=== PATIENT | female | born 1940 | race Caucasian/White ===

== ENCOUNTER 2016-08-14 01:46 | Inpatient (IN) ==
[2016-08-14 04:51] LABS: Hematocrit 34.1 % (35.3-44.9); Hemoglobin 11.3 g/dL (11.5-15.4); Immature Granulocytes % 0.2 % (0-4); Lymphocytes % 3.6 %; Mean Corpuscular HGB Conc 33.1 g/dL (31.6-35.5); Mean Corpuscular Volume 87.7 fL (83.0-100.0); Mean Platelet Volume 11.2 fL (9.4-12.4); Monocytes % 1.5 %; Platelet Count 203 K/mcL (140-400); Red Blood Count 3.89 M/mcL (3.82-4.97); Red Cell Distribution Width 13.5 % (11.5-14.5); Segmented Neutrophils % 94.6 %
[2016-08-14 04:52] LABS: Basophils % 0.1 %; Lymphocytes # 0.4 K/mcL (0.6-4.6); Monocytes # 0.2 K/mcL (0.0-1.3); Neutrophils # 9.3 K/mcL (1.6-8.9)
[2016-08-14 04:58] LABS: ABG Base Excess 3.2 mEq/L (-2.0 to 3.0); ABG HCO3 29.8 mEQ/L (21-27); ABG Oxygen Saturation 93 % (95-98); ABG PCO2 54 mmHg (35-45); ABG PH 7.35 pH Units (7.32-7.45); ABG PO2 71 mmHg (85-104); ABG TCO2 31.5 mEq/L (20-26)
[2016-08-14 05:07] LABS: Alanine Aminotransferase 10 Units/L (0-55); Albumin 3.3 g/dL (3.5-5.0); Alkaline Phosphatase 56 Units/L (38-126); Aspartate Amino Transferase 18 Units/L (5-34); BUN/Creatinine Ratio 26 (6-26); Bilirubin,Total 0.4 mg/dL (0.2-1.2); Blood Urea Nitrogen 21 mg/dL (7-20); C-Reactive Protein 1 mg/L (Less than 5); Calcium 8.7 mg/dL (8.6-10.8); Carbon Dioxide 26 mEq/L (19-29); Chloride 104 mEq/L (98-109); Globulin 3.2 g/dL (2.4-3.5); Glucose 157 mg/dL (70-99); Magnesium 1.9 mg/dL (1.6-2.6); Osmolality,Calculated 294 (280-300); Potassium 3.4 mEq/L (3.5-4.5); Sodium 139 mEq/L (136-145); Total Protein 6.5 g/dL (6.0-8.3); eGFR For African Americans > 60 (> 60); eGFR For Non-African Americans > 60 (> 60)
[2016-08-14 05:09] LABS: Blood Gas FiO2 50 %
[2016-08-14] MEDS ORDERED: Naloxone 0.4 MG/ML INJ IVP PRN (08:07)
[2016-08-14] MEDS ORDERED: Ondansetron 4 MG/2 ML VIAL IVP PRN (08:07)
--- NOTE | 2016-08-14 08:24 | Internal Med History&Physical ---
Date of Encounter: 08/14/16 Time of Encounter: 08:00 Assessment and Plan (1) Acute respiratory failure with hypoxia Current visit: Yes Status: Acute Likely secondary to CHF decompensation Clinically improved with diuretic therapy and Bipap support-will continue Patient may have underlying chronic lung disease due to occupation exposures and will need further pulmonary work up as outpatient will continue IV diuresis monitor I/Os monitor daily weights 2D echo from Jun 2016 showed LVEF of 50%, normal LV chamber size, wall thickness and function. Psuedonormal LV diastolic dysfunction. Normal RV structure and function. Mild AR, Mild to moderate MR, mild pulm htn, small pericardial effusion present. Will repeat 2D echo given persistent worsening of patient's symptoms Will consider cardiology eval if patient does not clinically improver/ if 2D echo shows worsening LVEF Will closely monitor resp status, bipap support as needed, continue O2 supplementation as needed(patient reports of being on home oxygen 29/11) (2) Lactic acidosis Current visit: Yes Status: Acute Likely secondary to hypoxia will trend LA (3) Acute exacerbation of CHF (congestive heart failure) Current visit: Yes Status: Acute Likely secondary to missed diuretic dosages Plan as listed above Qualifiers: Congestive heart failure type: diastolic Qualified Code(s): I50.33 - Acute on chronic diastolic (congestive) heart failure (4) Hypertension Current visit: Yes Status: Chronic Bipap within acceptable range continue home medications Qualifiers: Hypertension type: essential hypertension Qualified Code(s): I10 - Essential (primary) hypertension (5) Hypokalemia Current visit: No Status: Acute K supplemented will continue to monitor electrolytes and replace as needed (6) Hyperglycemia Current visit: No Status: Acute Noted to be severely hyperglycemic upon arrival to the ER, repeat Labs show improvement No documented history of DM will obtain HbA1C and closely monitor BG. (7) DVT prophylaxis Current visit: Yes Status: Acute Heparin SQ (8) GERD (gastroesophageal reflux disease) Current visit: Yes Status: Chronic history of GERD will continue protonix Qualifiers: Esophagitis presence: esophagitis presence not specified Qualified Code(s) : K21.9 - Gastro-esophageal reflux disease without esophagitis Internal Medicine - H&P: HPI Chief complaint: shortness of breath Admitted From: Home Plans for Post Hospital Care: Home History of present illness: Ms. Arndt is a 76 year old female with PMH of CHF, GERD, HLD, HTN who was admitted for management of acute respiratory failure secondary to CHF decompensation. Patient was recently discharged from [facility] on July after being treated for the same issue. Upon arrival to the ER , patient was noted to be severely hypoxic with O2 sat of 66%. She received bumex, solumederol, abx, and bipap support, all of which improved patient's hypoxia. Patient is currently on bipap support, reports of feeling better, however not able to completely give her medical history due to which information was obtained from the med records. It appears that patient is newly diagnosed with CHF in the last few months and was recently placed on home oxygen. She states after her discharge from [facility], she did not have any lasix or bumex and was supposed to follow up with her PCP but her symptoms worsened which prompted her visit to the ER. 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 She was scheduled to follow up with pulmonary after her discharge from her last hospitalization and undergo PFTs to evaluate her lung function. At this time she is saturating well on bipap support. Reports of feeling better. States prior to her arrival she had abdominal discomfort, soreness which has now resolved. Denies any headache, chest pain, abd pain, n/v, fever, or chills at this time. Patient states she would like to discuss with her son about her advance directives therefore will remain Full code at this time. Of note: During patient's last hospitalization at [facility] patient underwent right sided thoracentesis with resolution of her acute respiratory distress. Past Med Surg Social Fam HX - Past Medical History Medical history: asthma, CHF, COPD, GERD, hyperlipidemia, hypertension Psychiatric history: anxiety - Past Surgical History Surgical History: hysterectomy - Social History Smoking Status: Never smoker Smokeless Tobacco Status: No Alcohol use: none Drug use: none - Family History Mother History Unknown: Yes Living Status: Hx Family Cardiac Disorders: Yes Internal Medicine - H&P: Meds Aspirin [Lo-Dose Aspirin EC] 81 mg PO DAILY 01/23/16 [History] Citalopram [CeleXA] 20 mg PO DAILY 01/23/16 [History] Famotidine [Pepcid] 40 mg PO DAILY 01/23/16 [History] Bumetanide [Bumex] 0.5 mg PO Q48H #7 tablet 06/19/16 [Rx] Lisinopril [Zestril] 20 mg PO DAILY tablet 06/19/16 [Rx] Potassium Chloride 10 meq PO BIDWM #14 tab.er.prt 08/06/16 [Rx] Allergies No Known Allergies Allergy (Verified 01/16/16 14:32) All Systems PM: A 10-system review of systems was performed and is negative for pertinent findings except as documented above in the HPI. - Constitutional Constitutional: as per HPI - Constitutional Vitals: Temp Pulse Resp BP Pulse Ox 97.7 F 80 29 136/80 96 08/14/16 03:20 08/14/16 03:20 08/14/16 03:20 08/14/16 03:20 08/14/16 03:20 General appearance: Present: A&O X 3, no acute distress, answers questions appropriately - Head Head exam: Present: atraumatic, normocephalic - Eye Eye exam: Present: normal appearance, conjuntiva pink, sclera anicteric - Respiratory Respiratory exam: Absent: prolonged expiratory phase, respiratory distress ( bibasilar crackles), wheezes - Cardiovascular Cardiovascular exam: Present: RRR, +S1, +S2. Absent: diastolic murmur, gallop, JVD, rubs, systolic murmur - GI/Abdominal GI/Abdominal exam: Present: normal bowel sounds, soft, no peritoneal signs. Absent: distended, tenderness - Extremities Exam Extremities exam: Present: warm, radial pulses palpable and symetrical. Absent : calf tenderness, cyanotic, pedal edema - Neurological Exam Neurological exam: Present: alert, oriented X3 - Psychiatric Psychiatric exam: Present: normal affect, normal mood Internal Med - H&P Results - Labs CBC & Chem 7: 08/14/16 04:44 08/14/16 04:44 Labs: Short CBC 08/14/16 Range/Units 04:44 WBC 9.8 (4.3-11.1) K/mcL Hgb 11.3 L (11.5-15.4) g/dL Hct 34.1 L (35.3-44.9) % Plt Count 203 (140-400) K/mcL Neutrophils # 9.3 H (1.6-8.9) K/mcL BMP 08/14/16 04:44 Sodium 139 Potassium 3.4 L Chloride 104 Carbon Dioxide 26 BUN 21 H Creatinine 0.80 Glucose 157 H Calcium 8.7 Liver Function 08/14/16 Range/Units 04:44 Total Bilirubin 0.4 (0.2-1.2) mg/dL AST 18 (5-34) Units/L ALT 10 (0-55) Units/L Alkaline Phosphatase 56 (38-126) Units/L Albumin 3.3 L (3.5-5.0) g/dL - ABG Interpretation ABG results: 08/14/16 04:50 ABG pH 7.35 D ABG pCO2 54 H ABG pO2 71 L ABG HCO3 29.8 H ABG Total CO2 31.5 H ABG O2 Saturation 93 L ABG Base Excess 3.2 H
[2016-08-14] MEDS ORDERED: Vancomycin 1,000 MG in D5% in Water 250 ML IVPB ONE (09:00)
[2016-08-14 09:21] LABS: Bilirubin,Urine Negative (Negative); Blood,Urine Moderate (Negative); Clarity,Urine Clear (Clear); Color,Urine Yellow (Yellow); Glucose,Urine (UA) Normal (Normal); Ketones,Urine Negative (Negative); Leukocyte Esterase,Urine Negative (Negative); Nitrite,Urine Negative (Negative); PH,Urine 5.5 pH Units (5.0-8.0); Protein,Urine Negative (Neg-Trace); Specific Gravity,Urine 1.013 (1.010-1.025); Urobilinogen,Urine Normal (Normal)
[2016-08-14 09:24] LABS: Bacteria,Urine None Seen per hpf (None-Few); Hyaline Casts,Urine None Seen per lpf (None-Few); RBC,Urine 15-30 per hpf (0-3); Squamous Epithelial Cell,Urine Moderate per lpf (None-Few); WBC,Urine 0-3 per hpf (0-3)
[2016-08-14] MEDS: Piperacillin/Tazobactam 3.375 GM in D5% in Water (Mini-Bag+) 100 ML IVPB SCH ×2 (09:46→15:31)
[2016-08-14 09:50] LABS: Hemoglobin A1C 5.3 %
[2016-08-14] MEDS: Furosemide 40 MG/4 ML VIAL IVP SCH ×2 (09:56→20:44)
[2016-08-14] MEDS: *HR* Heparin 5,000 UNIT/ML VIAL SQ SCH ×2 (15:32→20:45)
[2016-08-14] MEDS: Vancomycin 1,000 MG in D5% in Water 250 ML IVPB SCH (20:45)
[2016-08-15] MEDS: Piperacillin/Tazobactam 3.375 GM in D5% in Water (Mini-Bag+) 100 ML IVPB SCH ×3 (01:00→15:07)
[2016-08-15 05:07] LABS: BUN/Creatinine Ratio 22 (6-26); Blood Urea Nitrogen 22 mg/dL (7-20); Calcium 8.8 mg/dL (8.6-10.8); Carbon Dioxide 25 mEq/L (19-29); Chloride 99 mEq/L (98-109); Glucose 136 mg/dL (70-99); Magnesium 1.9 mg/dL (1.6-2.6); Osmolality,Calculated 289 (280-300); Phosphorous 3.6 mg/dL (2.3-4.7); Potassium 3.5 mEq/L (3.5-4.5); Sodium 137 mEq/L (136-145); eGFR For African Americans > 60 (> 60); eGFR For Non-African Americans 53 (> 60)
[2016-08-15 06:15] LABS: Basophils % 0.1 %; Hematocrit 31.3 % (35.3-44.9); Hemoglobin 10.3 g/dL (11.5-15.4); Immature Granulocytes % 0.4 % (0-4); Immature Platelets 8.3 % (1.1-6.1); Lymphocytes # 1.3 K/mcL (0.6-4.6); Mean Corpuscular HGB Conc 32.9 g/dL (31.6-35.5); Mean Corpuscular Hemoglobin 28.7 pg (28.0-33.3); Mean Corpuscular Volume 87.2 fL (83.0-100.0); Mean Platelet Volume 11.3 fL (9.4-12.4); Monocytes # 0.9 K/mcL (0.0-1.3); Monocytes % 7.1 %; Neutrophils # 10.3 K/mcL (1.6-8.9); Platelet Count 214 K/mcL (140-400); Red Blood Count 3.59 M/mcL (3.82-4.97); Red Cell Distribution Width 13.8 % (11.5-14.5); Segmented Neutrophils % 82.4 %
[2016-08-15] MEDS: *HR* Heparin 5,000 UNIT/ML VIAL SQ SCH ×3 (06:39→22:58)
[2016-08-15] MEDS: Lisinopril 20 MG TABLET PO SCH (09:03)
[2016-08-15] MEDS: Furosemide 40 MG/4 ML VIAL IVP SCH ×2 (09:03→22:57)
[2016-08-15] MEDS: Aspirin 81 MG TAB.CHEW PO SCH (09:03)
--- NOTE | 2016-08-15 11:38 | Internal Med Progress Note ---
Date of Encounter: 08/15/16 Time of Encounter: 11:15 - Assessment and plan (1) Acute respiratory failure with hypoxia Current Visit: Yes Status: Acute Assessment and plan: Likely secondary to CHF decompensation Clinically improved with diuretic therapy and Bipap support-will continue Patient may have underlying chronic lung disease due to occupation exposures and will need further pulmonary work up as outpatient will continue IV diuresis monitor I/Os-good urine output noted in the last 24hours. will d/c kim cath monitor daily weights 2D echo from Jun 2016 showed LVEF of 50%, normal LV chamber size, wall thickness and function. Psuedonormal LV diastolic dysfunction. Normal RV structure and function. Mild AR, Mild to moderate MR, mild pulm htn, small pericardial effusion present. Will repeat 2D echo given persistent worsening of patient's symptoms-2D echo done, pending report Will consider cardiology eval if patient does not clinically improver/ if 2D echo shows worsening LVEF Will closely monitor resp status, bipap support as needed, continue O2 supplementation as needed(patient reports of being on home oxygen 29/11) Likely discharge in am if remains clinically stable overnight (2) Lactic acidosis Current Visit: Yes Status: Acute Assessment and plan: Resolved Likely secondary to hypoxia (3) Acute exacerbation of CHF (congestive heart failure) Current Visit: Yes Status: Acute Assessment and plan: likely secondary to missed diuretic therapy plan as listed above Qualifiers: Congestive heart failure type: diastolic Qualified Code(s): I50.33 - Acute on chronic diastolic (congestive) heart failure (4) Hypertension Current Visit: Yes Status: Chronic Assessment and plan: BP within acceptable range will continue home medications Qualifiers: Hypertension type: essential hypertension Qualified Code(s): I10 - Essential (primary) hypertension (5) Hypokalemia Current Visit: No Status: Resolved (6) Hyperglycemia Current Visit: No Status: Resolved Assessment and plan: A1C noted hyperglycemia likely secondary to the steroid therapy patient received in the ER (7) DVT prophylaxis Current Visit: Yes Status: Acute Assessment and plan: Heparin SQ (8) GERD (gastroesophageal reflux disease) Current Visit: Yes Status: Chronic Assessment and plan: continue home medications Qualifiers: Esophagitis presence: esophagitis presence not specified Qualified Code(s) : K21.9 - Gastro-esophageal reflux disease without esophagitis (9) Leukocytosis Current Visit: Yes Status: Acute Assessment and plan: Likely reactive to steroid therapy will continue empiric abx therapy for another day f/u blood cultures Qualifiers: Leukocytosis type: unspecified Qualified Code(s): D72.829 - Elevated white blood cell count, unspecified - Subjective Interval history: Patient seen and examined. Resting in chair and saturating well on nasal cannula. Reports of feeling significantly better compared to previous day. AAO x 3, able to communicate well. States she did not have any diuretics after her last discharge. At this time denies any chest pain, sob, or any discomfort. - Constitutional Vitals: Temp Pulse Resp BP Pulse Ox 97.3 F L 80 18 120/72 94 08/15/16 08:00 08/15/16 10:46 08/15/16 08:00 08/15/16 08:00 08/15/16 10:46 General appearance: Present: A&O X 3, no acute distress, answers questions appropriately - Head Head exam: Present: atraumatic, normocephalic - Eye Eye exam: Present: PERRL, conjuntiva pink, sclera anicteric - Respiratory Respiratory exam: Present: CTAB. Absent: accessory muscle use, rales, rhonchi, wheezes - Cardiovascular Cardiovascular exam: Present: RRR, +S1, +S2. Absent: diastolic murmur, gallop, rubs, systolic murmur - GI/Abdominal GI/Abdominal exam: Present: normal bowel sounds, soft, no peritoneal signs. Absent: distended, tenderness - Extremities Exam Extremities exam: Present: warm, radial pulses palpable and symetrical. Absent : calf tenderness, cyanotic, pedal edema - Neurological Exam Neurological exam: Present: alert, oriented X3 - Psychiatric Psychiatric exam: Present: normal affect, normal mood Internal Medicine: Result - Labs CBC & Chem 7: 08/15/16 06:05 08/15/16 04:29 Labs: Short CBC 08/15/16 Range/Units 06:05 WBC 12.5 H (4.3-11.1) K/mcL Hgb 10.3 L (11.5-15.4) g/dL Hct 31.3 L (35.3-44.9) % Plt Count 214 (140-400) K/mcL Neutrophils # 10.3 H (1.6-8.9) K/mcL BMP 08/15/16 04:29 Sodium 137 Potassium 3.5 Chloride 99 Carbon Dioxide 25 BUN 22 H Creatinine 1.01 Glucose 136 H Calcium 8.8 - ABG Interpretation ABG results: ABG ABG pH 7.35 pH Units (7.32-7.45) D 08/14/16 04:50 ABG pCO2 54 mmHg (35-45) H 08/14/16 04:50 ABG pO2 71 mmHg (85-104) L 08/14/16 04:50 ABG O2 Saturation 93 % (95-98) L 08/14/16 04:50 - Impressions Impressions Chest X-Ray 08/15/16 07:48 IMPRESSION: 1. Substantial improvement in pulmonary edema since the previous exam on 08/14/2016. D/ / 08/15/2016 08:40:27 Judd Weiss MD / anna Interpreting Provider: Judd Weiss MD Consult Discharge Plan - Plan Referrals: Jessica Linn, ARRANGING FUNERAL DIRECTOR [Primary Care Provider] -
[2016-08-15 18:24] LABS: Bilirubin,Urine Negative (Negative); Blood,Urine Moderate (Negative); Clarity,Urine Clear (Clear); Color,Urine Yellow (Yellow); Glucose,Urine (UA) Normal (Normal); Ketones,Urine Negative (Negative); Leukocyte Esterase,Urine Small (Negative); Nitrite,Urine Negative (Negative); PH,Urine 5.5 pH Units (5.0-8.0); Protein,Urine Negative (Neg-Trace); Specific Gravity,Urine 1.021 (1.010-1.025); Urobilinogen,Urine Normal (Normal)
[2016-08-15 18:27] LABS: Bacteria,Urine None Seen per hpf (None-Few); Hyaline Casts,Urine None Seen per lpf (None-Few); Squamous Epithelial Cell,Urine Many per lpf (None-Few)
[2016-08-15 19:45] LABS: Acinetobacter baumannii by PCR Not Detected (Not Detect); Candida albicans by PCR Not Detected (Not Detect); Candida glabrata by PCR Not Detected (Not Detect); Candida krusei by PCR Not Detected (Not Detect); Candida parapsilosis by PCR Not Detected (Not Detect); Candida tropicalis by PCR Not Detected (Not Detect); Enterococcus by PCR Not Detected (Not Detect); Escherichia coli by PCR Not Detected (Not Detect); Klebsiella oxytoca by PCR Not Detected (Not Detect); Klebsiella pneumoniae by PCR Not Detected (Not Detect); Pseudomonas aeruginosa by PCR Not Detected (Not Detect); Serratia marcescens by PCR Not Detected (Not Detect); Staphylococcus aureus by PCR Not Detected (Not Detect); Streptococcus agalactiae(B)PCR Not Detected (Not Detect); Streptococcus by PCR Not Detected (Not Detect); Streptococcus pneumoniae PCR Not Detected (Not Detect); Streptococcus pyogenes (A) PCR Not Detected (Not Detect); mecA Methicillin-Resist Gene ***DETECTED*** (Not Detect)
[2016-08-15] MEDS: Vancomycin 1,000 MG in D5% in Water 250 ML IVPB SCH (22:57)
[2016-08-16] MEDS: Piperacillin/Tazobactam 3.375 GM in D5% in Water (Mini-Bag+) 100 ML IVPB SCH ×2 (00:13→08:42)
[2016-08-16 04:28] LABS: Basophils % 0.2 %; Eosinophils # 0.1 K/mcL (0.0-0.6); Eosinophils % 0.7 %; Hematocrit 34.2 % (35.3-44.9); Hemoglobin 11.1 g/dL (11.5-15.4); Immature Granulocytes % 0.2 % (0-4); Lymphocytes # 2.9 K/mcL (0.6-4.6); Lymphocytes % 34.1 %; Mean Corpuscular HGB Conc 32.5 g/dL (31.6-35.5); Mean Corpuscular Hemoglobin 28.4 pg (28.0-33.3); Mean Corpuscular Volume 87.5 fL (83.0-100.0); Mean Platelet Volume 11.8 fL (9.4-12.4); Monocytes # 0.8 K/mcL (0.0-1.3); Monocytes % 9.8 %; Neutrophils # 4.7 K/mcL (1.6-8.9); Platelet Count 187 K/mcL (140-400); Red Blood Count 3.91 M/mcL (3.82-4.97); Red Cell Distribution Width 13.9 % (11.5-14.5)
[2016-08-16 04:38] LABS: BUN/Creatinine Ratio 27 (6-26); Blood Urea Nitrogen 27 mg/dL (7-20); Carbon Dioxide 31 mEq/L (19-29); Chloride 95 mEq/L (98-109); Glucose 109 mg/dL (70-99); Magnesium 2.3 mg/dL (1.6-2.6); Osmolality,Calculated 296 (280-300); Phosphorous 3.5 mg/dL (2.3-4.7); Potassium 3.2 mEq/L (3.5-4.5); Sodium 140 mEq/L (136-145); eGFR For African Americans > 60 (> 60); eGFR For Non-African Americans 53 (> 60)
[2016-08-16] MEDS: *HR* Heparin 5,000 UNIT/ML VIAL SQ SCH ×3 (06:23→21:37)
--- NOTE | 2016-08-16 08:35 | ECHO - Doppler Report ---
Limited Echocardiogram Name: Sharri Arndt Date of Study: 08/14/2016 Date: 1940 Ht: 64.0 in Medical Record#: [id number] Age: 76 Wt: 155.0 lb Gender: Female BSA: 1.76 Order #: [id number] Location: [facility] Room #: 2N05 Reading Physician: Vivek Christian DO, FACC, FASE Filling Winder: Amanda Martinez RDCS Ordering Physician: Sunshine Duval MD Primary Physician: Jessica Linn CNP Indications: Evaluate LVEF Impressions: LVEF 45%. Normal LV chamber size and wall thickness. Mild global left ventricular systolic dysfunction. Pleural effusion noted. Compared to prior report, LV function appears mildly reduced. Left Ventricular Wall Motion: Rest Echo Findings The apex, apical inferior, mid inferior, basal inferior, apical anterior, mid anterior, basal anterior, apical septal, mid inferior septal, basal inferior septal, apical lateral, mid anterior lateral, basal anterior lateral, mid anterior septal, mid inferior lateral, basal anterior septal and basal inferior lateral jaramillo were hypokinetic. Findings: Study Quality * Technically adequate exam. ECG Findings * Normal sinus rhythm. Left Ventricle * LVEF 45%. * Normal LV chamber size and wall thickness. * Mild global left ventricular systolic dysfunction. Right Ventricle * Normal right ventricular structure and function. Pericardium * The pericardium appears normal. IVC * Normal IVC dimensions and inspiratory collapse. Pleural Effusion * Pleural effusion noted. History Hypercholesteremia Family History of CAD Congestive Heart Failure 06/18/2016 a Previous Echo was performed. Measurements: BP: 124/ 70 2D Normal Values RVIDd: 2.59 cm <2.7 cm IVSd: 1.13 cm 0.6 - 1.0 cm LVIDd: 5.26 cm 3.7 - 5.6 cm LVPWd: 1.11 cm 0.6 - 1.1 cm LVIDs: 4.16 cm 1.5 - 3.6 cm %FS: 20.90 cm >25 % LA volume: Updated by Vivek Christian DO, FACC, FASE, FASNC on 08/16/2016 8:30:15 AM electronically signed on 08/16/2016 8:30:42 AM with status of Final Wall Motion Peck: 1=Normal, 2=Hypokinesis, 3=Akinesis, 4=Dyskinesis, 5=Aneurysmal, 6=Hyperkinetic, X=Not Visualized (Blank)=Missing
[2016-08-16] MEDS: Lisinopril 20 MG TABLET PO SCH (08:41)
[2016-08-16] MEDS: Aspirin 81 MG TAB.CHEW PO SCH (08:41)
[2016-08-16] MEDS: Furosemide 40 MG/4 ML VIAL IVP SCH (08:42)
--- NOTE | 2016-08-16 11:14 | Internal Med Progress Note ---
Date of Encounter: 08/16/16 Time of Encounter: 11:11 - Assessment and plan (1) Acute respiratory failure with hypoxia Current Visit: Yes Status: Acute Assessment and plan: Likely secondary to CHF decompensation Significantly improved, respiratory status back to baseline. We will switch to oral diuretics. Lasix 40 mg twice a day. Continue O2 supplementation as needed. Repeat 2-D echo noted, LVEF of 45% and overall reported to have mildly reduced LV function, since patient is clinically improving, will follow up with cardiology as outpatient. We will continue to monitor I/O's, daily weights fluid restriction diet (2) Lactic acidosis Current Visit: Yes Status: Acute Assessment and plan: Resolved Likely secondary to hypoxia (3) Acute exacerbation of CHF (congestive heart failure) Current Visit: Yes Status: Acute Assessment and plan: likely secondary to missed diuretic therapy plan as listed above Qualifiers: Congestive heart failure type: diastolic Qualified Code(s): I50.33 - Acute on chronic diastolic (congestive) heart failure (4) Hypertension Current Visit: Yes Status: Chronic Assessment and plan: BP within acceptable range will continue home medications Qualifiers: Hypertension type: essential hypertension Qualified Code(s): I10 - Essential (primary) hypertension (5) Hypokalemia Current Visit: No Status: Acute Assessment and plan: Potassium supplemented Continue to monitor electrolytes and replace as needed (6) Hyperglycemia Current Visit: No Status: Resolved (7) DVT prophylaxis Current Visit: Yes Status: Acute Assessment and plan: Heparin SQ (8) GERD (gastroesophageal reflux disease) Current Visit: Yes Status: Chronic Assessment and plan: continue home medications Qualifiers: Esophagitis presence: esophagitis presence not specified Qualified Code(s) : K21.9 - Gastro-esophageal reflux disease without esophagitis (9) Leukocytosis Current Visit: Yes Status: Acute Assessment and plan: Resolved, however noted to have preliminary positive blood cultures with gram- positive cocci We will follow up repeat cultures Patient clinically asymptomatic, therefore initial preliminary culture report can be likely contaminant We will continue empiric IV antibiotic therapy at this time Pharmacy to dose vancomycin and monitor trough We will continue to monitor Qualifiers: Leukocytosis type: unspecified Qualified Code(s): D72.829 - Elevated white blood cell count, unspecified - Subjective Interval history: Patient seen and examined. Resting comfortably in chair, reports of feeling significantly better and currently saturating well on room air. Patient is noted to have positive blood cultures preliminary report for gram-positive cocci. Denies any fever, chills and is asymptomatic at this time. - Constitutional Vitals: Temp Pulse Resp BP Pulse Ox 97.9 F 68 18 133/74 95 08/16/16 07:50 08/16/16 09:13 08/16/16 07:50 08/16/16 07:50 08/16/16 07:50 General appearance: Present: A&O X 3, no acute distress, answers questions appropriately - Head Head exam: Present: atraumatic, normocephalic - Eye Eye exam: Present: normal appearance, PERRL, conjuntiva pink, sclera anicteric - Respiratory Respiratory exam: Present: CTAB. Absent: accessory muscle use, rales, rhonchi, wheezes - Cardiovascular Cardiovascular exam: Present: RRR, +S1, +S2. Absent: diastolic murmur, gallop, rubs, systolic murmur - GI/Abdominal GI/Abdominal exam: Present: normal bowel sounds, soft, no peritoneal signs. Absent: distended, tenderness - Extremities Exam Extremities exam: Present: warm, radial pulses palpable and symetrical. Absent : calf tenderness, cyanotic, pedal edema - Neurological Exam Neurological exam: Present: alert, oriented X3 - Psychiatric Psychiatric exam: Present: normal affect, normal mood Internal Medicine: Result - Labs CBC & Chem 7: 08/16/16 03:49 08/16/16 03:49 Labs: Short CBC 08/16/16 Range/Units 03:49 WBC 8.6 (4.3-11.1) K/mcL Hgb 11.1 L (11.5-15.4) g/dL Hct 34.2 L (35.3-44.9) % Plt Count 187 (140-400) K/mcL Neutrophils # 4.7 (1.6-8.9) K/mcL BMP 08/16/16 03:49 Sodium 140 Potassium 3.2 L Chloride 95 L Carbon Dioxide 31 H BUN 27 H Creatinine 1.01 Glucose 109 H Calcium 9.0 Urine 08/15/16 Range/Units 17:50 Urine Color Yellow (Yellow) Urine Clarity Clear (Clear) Urine pH 5.5 (5.0-8.0) pH Units Ur Specific [place] 1.021 (1.010-1.025) Urine Protein Negative (Neg-Trace) mg/dL Urine Glucose (UA) Normal (Normal) mg/dL - ABG Interpretation ABG results: ABG ABG pH 7.35 pH Units (7.32-7.45) D 08/14/16 04:50 ABG pCO2 54 mmHg (35-45) H 08/14/16 04:50 ABG pO2 71 mmHg (85-104) L 08/14/16 04:50 ABG O2 Saturation 93 % (95-98) L 08/14/16 04:50 Consult Discharge Plan - Plan Referrals: Jessica Linn, INSOLE TOE SNIPPING MACHINE OPERATOR [Primary Care Provider] - 08/23/16 9:30 am
[2016-08-16] MEDS: Furosemide 40 MG TABLET PO SCH (16:14)
[2016-08-16] MEDS: Vancomycin 1,000 MG in D5% in Water 250 ML IVPB SCH (21:35)
[2016-08-17 04:18] LABS: Basophils % 0.4 %; Eosinophils # 0.2 K/mcL (0.0-0.6); Hematocrit 34.6 % (35.3-44.9); Hemoglobin 11.3 g/dL (11.5-15.4); Immature Granulocytes % 0.3 % (0-4); Lymphocytes % 39.1 %; Mean Corpuscular HGB Conc 32.7 g/dL (31.6-35.5); Mean Corpuscular Hemoglobin 28.3 pg (28.0-33.3); Mean Corpuscular Volume 86.5 fL (83.0-100.0); Mean Platelet Volume 11.3 fL (9.4-12.4); Monocytes # 0.8 K/mcL (0.0-1.3); Monocytes % 9.9 %; Neutrophils # 3.6 K/mcL (1.6-8.9); Platelet Count 219 K/mcL (140-400); Red Cell Distribution Width 13.5 % (11.5-14.5); Segmented Neutrophils % 47.3 %
[2016-08-17 04:29] LABS: BUN/Creatinine Ratio 23 (6-26); Blood Urea Nitrogen 18 mg/dL (7-20); Calcium 9.2 mg/dL (8.6-10.8); Carbon Dioxide 35 mEq/L (19-29); Chloride 95 mEq/L (98-109); Glucose 114 mg/dL (70-99); Magnesium 2.1 mg/dL (1.6-2.6); Osmolality,Calculated 289 (280-300); Phosphorous 3.2 mg/dL (2.3-4.7); Potassium 3.2 mEq/L (3.5-4.5); Sodium 138 mEq/L (136-145); eGFR For African Americans > 60 (> 60); eGFR For Non-African Americans > 60 (> 60)
[2016-08-17] MEDS: *HR* Heparin 5,000 UNIT/ML VIAL SQ SCH ×3 (06:32→21:31)
[2016-08-17] MEDS: Lisinopril 20 MG TABLET PO SCH (07:27)
[2016-08-17] MEDS: Aspirin 81 MG TAB.CHEW PO SCH (07:27)
[2016-08-17] MEDS: Furosemide 40 MG TABLET PO SCH (07:27)
[2016-08-17] MEDS ORDERED: Aminoglycoside Consult 1 EACH MC ONE (09:33)
--- NOTE | 2016-08-17 17:02 | Internal Med Progress Note ---
Date of Encounter: 08/17/16 Time of Encounter: 10:00 - Assessment and plan (1) Acute respiratory failure with hypoxia Current Visit: Yes Status: Acute Assessment and plan: Likely secondary to CHF decompensation Significantly improved, respiratory status back to baseline. Tolerating room air well. We will switch to oral diuretics. Lasix 40 mg once a day. Continue O2 supplementation as needed. Repeat 2-D echo noted, LVEF of 45% and overall reported to have mildly reduced LV function, since patient is clinically improving, will follow up with cardiology as outpatient. Patient is on lisinopril. Add the metoprolol 12.5 mg by mouth twice a day. We will continue to monitor I/O's, daily weights fluid restriction diet (2) Acute exacerbation of CHF (congestive heart failure) Current Visit: Yes Status: Acute Assessment and plan: likely secondary to missed diuretic therapy plan as listed above Qualifiers: Congestive heart failure type: combined Qualified Code(s): I50.43 - Acute on chronic combined systolic (congestive) and diastolic (congestive) heart failure (3) DVT prophylaxis Current Visit: Yes Status: Acute Assessment and plan: Heparin SQ (4) Hypertension Current Visit: Yes Status: Chronic Assessment and plan: BP within acceptable range will continue home medications Qualifiers: Hypertension type: essential hypertension Qualified Code(s): I10 - Essential (primary) hypertension (5) Hypokalemia Current Visit: No Status: Acute Assessment and plan: Potassium supplemented Continue to monitor electrolytes and replace as needed - Time Spent With Patient 25 - 35 minutes - Subjective Interval history: Patient is a 76-year-old female admitted for CHF exacerbation. Her past medical history significant for CHF, COPD, hyperlipidemia, hypertension. She was seen and examined. Shortness of breath has improved significantly. Patient is off oxygen. Patient has significant urine output and a negative fluid balance after diuretic use. We will continue Lasix by mouth. Patient has hypokalemia today, give potassium supplement and a follow-up potassium level tomorrow morning. Patient has one bottle of blood culture positive, results shows staph epidermidis, patient has no fever, no WBC elevation. Possibly contamination, will discontinue antibiotic. - Constitutional Vitals: Temp Pulse Resp BP Pulse Ox 98.7 F 79 18 160/89 96 08/17/16 15:27 08/17/16 15:40 08/17/16 15:27 08/17/16 15:27 08/17/16 15:27 General appearance: Present: A&O X 3, no acute distress, answers questions appropriately - Head Head exam: Present: atraumatic, normocephalic - Eye Eye exam: Present: PERRL, conjuntiva pink, sclera anicteric Pupils: Present: PERRL - Neck Neck exam general surgery: Present: supple, trachea midline. Absent: lymphadenopathy - Respiratory Respiratory exam: Present: CTAB. Absent: accessory muscle use, rales, rhonchi, wheezes - Cardiovascular Cardiovascular exam: Present: RRR, +S1, +S2. Absent: diastolic murmur, gallop, rubs, systolic murmur - GI/Abdominal GI/Abdominal exam: Present: normal bowel sounds, soft, no peritoneal signs. Absent: distended, tenderness - Extremities Exam Extremities exam: Present: warm, radial pulses palpable and symetrical. Absent : calf tenderness, cyanotic, pedal edema - Neurological Exam Neurological exam: Present: CN II-XII intact, oriented X3, no focal deficits. Absent: pronater drift, facial droop, speech deficit - Skin Skin exam: Present: dry, intact Internal Medicine: Result - Labs CBC & Chem 7: 08/17/16 03:49 08/17/16 03:49 Labs: Short CBC 08/17/16 Range/Units 03:49 WBC 7.6 (4.3-11.1) K/mcL Hgb 11.3 L (11.5-15.4) g/dL Hct 34.6 L (35.3-44.9) % Plt Count 219 (140-400) K/mcL Neutrophils # 3.6 (1.6-8.9) K/mcL BMP 08/17/16 03:49 Sodium 138 Potassium 3.2 L Chloride 95 L Carbon Dioxide 35 H BUN 18 Creatinine 0.77 Glucose 114 H Calcium 9.2 - ABG Interpretation ABG results: ABG ABG pH 7.35 pH Units (7.32-7.45) D 08/14/16 04:50 ABG pCO2 54 mmHg (35-45) H 08/14/16 04:50 ABG pO2 71 mmHg (85-104) L 08/14/16 04:50 ABG O2 Saturation 93 % (95-98) L 08/14/16 04:50 Consult Discharge Plan - Plan Referrals: Jessica Linn CNP [Primary Care Provider] - 08/23/16 9:30 am
--- NOTE | 2016-08-17 18:43 | Electrocardiograph Report ---
[place] [address] Test Date: 2016-08-16 Pat Name: Sharri Arndt Department: 110 Room: 05 Gender: F Franchise Broker: ESTEBAN : 1940 Requested By: Sunshine Duval Order Number: [id number] Reading MD: Park Lorenzo Measurements Intervals [place] Rate: 78 P: 33 SD: 129 QRS: -23 QRSD: 111 T: 57 QT: 447 QTc: 481 Interpretive Statements SINUS RHYTHM WITH FREQUENT SUPRAVENTRICULAR PREMATURE COMPLEXES BORDERLINE LEFT AXIS DEVIATION LEFT VENTRICULAR HYPERTROPHY AND ST-T CHANGE Electronically Signed On 08-17-2016 18:42:22 EDT by Park Lorenzo
[2016-08-17] MEDS ORDERED: Vancomycin 1,250 MG in D5% in Water 250 ML IVPB SCH (21:00)
[2016-08-18 05:06] LABS: BUN/Creatinine Ratio 24 (6-26); Blood Urea Nitrogen 18 mg/dL (7-20); Calcium 9.6 mg/dL (8.6-10.8); Carbon Dioxide 32 mEq/L (19-29); Chloride 100 mEq/L (98-109); Glucose 103 mg/dL (70-99); Osmolality,Calculated 292 (280-300); Potassium 3.6 mEq/L (3.5-4.5); Sodium 140 mEq/L (136-145); eGFR For African Americans > 60 (> 60); eGFR For Non-African Americans > 60 (> 60)
[2016-08-18] MEDS: *HR* Heparin 5,000 UNIT/ML VIAL SQ SCH (06:30)
[2016-08-18 07:38] VITALS: BP 138/87
[2016-08-18] MEDS: Aspirin 81 MG TAB.CHEW PO SCH (07:39)
[2016-08-18] MEDS: Lisinopril 20 MG TABLET PO SCH (07:39)
[2016-08-18] MEDS ORDERED: Furosemide 40 MG TABLET PO SCH (09:00)
--- NOTE | 2016-08-18 10:57 | Discharge Summary ---
Date of Encounter: 08/18/16 Time of Encounter: 10:00 - Discharge Diagnosis (1) Acute respiratory failure with hypoxia Priority: Primary Status: Acute (2) Acute exacerbation of CHF (congestive heart failure) Priority: Primary Status: Acute Qualifiers: Congestive heart failure type: combined Qualified Code(s): I50.43 - Acute on chronic combined systolic (congestive) and diastolic (congestive) heart failure (3) DVT prophylaxis Priority: Secondary Status: Acute (4) Hypertension Priority: Secondary Status: Chronic Qualifiers: Hypertension type: essential hypertension Qualified Code(s): I10 - Essential (primary) hypertension (5) Hypokalemia Priority: Secondary Status: Acute - Discharge Medications Prescriptions: Furosemide [Lasix] 40 mg PO DAILY #30 tablet Metoprolol [Lopressor] 12.5 mg PO BID #30 tablet Potassium Chloride 10 meq PO DAILY #14 tab.er.prt Home Medications: Aspirin [Lo-Dose Aspirin EC] 81 mg PO DAILY 01/23/16 [History] Lisinopril [Zestril] 20 mg PO DAILY tablet 06/19/16 [Rx] Escitalopram [Lexapro] 10 mg PO DAILY 08/14/16 [History] Pravastatin Sodium [Pravachol] 40 mg PO HS 08/14/16 [History] Furosemide [Lasix] 40 mg PO DAILY #30 tablet 08/18/16 [Rx] Metoprolol [Lopressor] 12.5 mg PO BID #30 tablet 08/18/16 [Rx] Potassium Chloride 10 meq PO DAILY #14 tab.er.prt 08/18/16 [Rx] Allergies/Adverse Reactions: Allergies No Known Allergies Allergy (Verified 01/16/16 14:32) Procedures/tests Complete & Pending: Procedures Performed prior 72 hours Category Date Time Status ECG 12 lead ECG [ECG] Stat Y 08/16/16 15:45 Completed - Notes to Outpatient Provider 1. Patient was placed on Lasix of 40 mg by mouth daily, potassium 10 mEq by mouth daily. Please a follow-up potassium level. 2. Patient was kept on lisinopril and added metoprolol, please a follow-up blood pressure and heart rate. Date of admission: 08/14/16 03:00 Primary care physician: Jessica Linn CNP Consults: 08/14/16 16:55 Consult to Director Of Services [CONS] Routine Reason for SW Consult: Would like to set up son as POA 08/15/16 15:34 Consult to Director Of Services [CONS] Routine Reason for SW Consult: code status/poa? Discharging clinician: Michael Tillman Anticipated date of discharge: 08/18/16 - Patient Status Disposition: Home, Self-Care Condition: Good Functional capacity at discharge: independent ambulation Overall status at discharge: patient is back to baseline - Discharge Instructions Follow Up With: Jessica Linn CNP [Primary Care Provider] - 08/23/16 9:30 am - Diet and Activity Activity: increase activity as tolerated Diet: low salt diet Interval History: Ms. Arndt is a 76 year old female with PMH of CHF, GERD, HLD, HTN who was admitted for management of acute respiratory failure secondary to CHF decompensation. Patient was recently discharged from [facility] on July after being treated for the same issue. Upon arrival to the ER , patient was noted to be severely hypoxic with O2 sat of 66%. She received bumex, solumederol, abx, and bipap support, all of which improved patient's hypoxia. Patient is currently on bipap support, reports of feeling better, however not able to completely give her medical history due to which information was obtained from the med records. It appears that patient is newly diagnosed with CHF in the last few months and was recently placed on home oxygen. She states after her discharge from [facility], she did not have any lasix or bumex and was supposed to follow up with her PCP but her symptoms worsened which prompted her visit to the ER. 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 She was scheduled to follow up with pulmonary after her discharge from her last hospitalization and undergo PFTs to evaluate her lung function. At this time she is saturating well on bipap support. Reports of feeling better. States prior to her arrival she had abdominal discomfort, soreness which has now resolved. Denies any headache, chest pain, abd pain, n/v, fever, or chills at this time. Patient states she would like to discuss with her son about her advance directives therefore will remain Full code at this time. Of note: During patient's last hospitalization at [facility] patient underwent right sided thoracentesis with resolution of her acute respiratory distress. Hospital course: Ms. Arndt is a 76 year old female admitted for CHF exacerbation. She was placed on Lasix, VIDAL inhibitor and beta kristy. After treatment, her shortness of breath has improved. Her leg swelling has resolved. Patient feel comfortable in room air now. Will discharge patient home today and follow-up as outpatient. Patient has 1 blood culture positive, result shows Staph Epidermitis, considered contamination. Repeat the blood culture negative. Patient was seen and examined. She is awake alert, oriented 3. Vital signs stable. No shortness of breath. Oxygen saturation 95% in room air. We will continue Lasix 40 mg by mouth daily. Add potassium 10 MEQ by mouth daily. Patient will follow-up with PCP in one week. - Time Spent with Patient Total time spent providing and/or coordinating discharge services: 40 minutes Greater than 30 minutes - Constitutional Vitals: Temp Pulse Resp BP Pulse Ox 98.4 F 56 18 138/87 99 08/18/16 07:37 08/18/16 07:41 08/18/16 07:37 08/18/16 07:37 08/18/16 07:37 General appearance: Present: A&O X 3, no acute distress, answers questions appropriately - Head Head exam: Present: atraumatic, normocephalic - Eye Eye exam: Present: PERRL, conjuntiva pink, sclera anicteric Pupils: Present: PERRL - Neck Neck exam general surgery: Present: supple, trachea midline. Absent: lymphadenopathy - Respiratory Respiratory exam: Present: CTAB. Absent: accessory muscle use, rales, rhonchi, wheezes - Cardiovascular Cardiovascular exam: Present: RRR, +S1, +S2. Absent: diastolic murmur, gallop, rubs, systolic murmur - GI/Abdominal GI/Abdominal exam: Present: normal bowel sounds, soft, no peritoneal signs. Absent: distended, tenderness - Extremities Exam Extremities exam: Present: warm, radial pulses palpable and symetrical. Absent : calf tenderness, cyanotic, pedal edema - Neurological Exam Neurological exam: Present: CN II-XII intact, oriented X3, no focal deficits. Absent: pronater drift, facial droop, speech deficit - Skin Skin exam: Present: dry, intact
== END 2016-08-18 12:30 | disposition home or self-care (01) | DRG 291 ==
LOC: 2NNU 03:00 → SUATTDRO 03:00
PROVIDERS: ADMIT Internal Medicine; ATTEND Internal Medicine

== ENCOUNTER 2020-03-04 18:33 | Inpatient (IN) ==
[2020-03-05] MEDS ORDERED: Acetaminophen 325 MG TABLET PO PRN (00:42)
[2020-03-05] MEDS ORDERED: Naloxone 0.4 MG/ML INJ IVP PRN (00:42)
[2020-03-05] MEDS ORDERED: *HR* Heparin 5,000 UNIT/ML VIAL IVP PRN ×2 (00:52)
[2020-03-05] MEDS ORDERED: *HR* Heparin 5,000 UNIT/ML VIAL IVP ONE (00:52)
[2020-03-05] MEDS: Heparin 25,000UNIT/250ML 1/2NS 25,000 UNIT/250 ML IV.SOLN IVC SCH (01:58)
[2020-03-05 04:21] LABS: Hematocrit 30.9 % (35.3-44.9); Hemoglobin 10.4 g/dL (11.5-15.4); Mean Corpuscular HGB Conc 33.7 g/dL (31.6-35.5); Mean Platelet Volume 10.9 fL (9.4-12.4); Platelet Count 215 K/mcL (140-400); Red Blood Count 3.47 M/mcL (3.82-4.97); Red Cell Distribution Width 12.6 % (11.5-14.5); White Blood Count 7.1 K/mcL (4.3-11.1)
[2020-03-05 04:28] LABS: Heparin anti-factor XA UFH 0.77 IU/mL (0.30-0.70)
[2020-03-05 04:29] LABS: INR 1.1; Prothrombin Time 13.1 Seconds (9.4-12.1)
[2020-03-05 04:41] LABS: BUN/Creatinine Ratio 20 (6-26); Blood Urea Nitrogen 13 mg/dL (8-23); Calcium 8.4 mg/dL (8.6-10.3); Carbon Dioxide 29 mEq/L (23-29); Chloride 96 mEq/L (98-107); Glucose 112 mg/dL (70-105); Magnesium 1.9 mg/dL (1.6-2.6); Osmolality,Calculated 279 (280-300); Potassium 3.3 mEq/L (3.5-5.1); Sodium 134 mEq/L (136-145); eGFR For African Americans > 60 (> 60); eGFR For Non-African Americans > 60 (> 60)
[2020-03-05] MEDS ORDERED: Perflutren Lipid Microsphere 1.3 ML in 0.9 % Sodium Chloride 8.7 ML IVP PRN (08:06)
[2020-03-05] MEDS: Aspirin Enteric Coated 81 MG Tablet PO SCH (08:44)
[2020-03-05] MEDS: Sucralfate 1 GM TABLET PO SCH ×3 (08:44→17:07)
[2020-03-05] MEDS: lisinopriL 20 MG TABLET PO SCH (08:45)
[2020-03-05] MEDS: Furosemide 40 MG/4 ML VIAL IVP SCH ×2 (08:45→21:01)
[2020-03-05 08:47] LABS: Hematocrit 32.8 % (35.3-44.9); Hemoglobin 10.6 g/dL (11.5-15.4)
[2020-03-05] MEDS: clonazePAM 0.5 MG TABLET PO PRN ×2 (09:00→17:07)
[2020-03-05 14:23] LABS: Hematocrit 34.2 % (35.3-44.9); Hemoglobin 11.2 g/dL (11.5-15.4)
[2020-03-06 06:14] LABS: Basophils % 0.3 %; Eosinophils # 0.1 K/mcL (0.0-0.6); Hematocrit 33.6 % (35.3-44.9); Hemoglobin 11.2 g/dL (11.5-15.4); Immature Granulocytes % 0.3 % (0-4); Lymphocytes # 1.6 K/mcL (0.6-4.6); Lymphocytes % 24.1 %; Mean Corpuscular HGB Conc 33.3 g/dL (31.6-35.5); Mean Corpuscular Hemoglobin 30.4 pg (28.0-33.3); Mean Corpuscular Volume 91.1 fL (83.0-100.0); Mean Platelet Volume 10.9 fL (9.4-12.4); Monocytes # 0.7 K/mcL (0.0-1.3); Monocytes % 10.2 %; Neutrophils # 4.3 K/mcL (1.6-8.9); Platelet Count 222 K/mcL (140-400); Red Blood Count 3.69 M/mcL (3.82-4.97); Red Cell Distribution Width 12.5 % (11.5-14.5); Segmented Neutrophils % 64.1 %; White Blood Count 6.7 K/mcL (4.3-11.1)
[2020-03-06 06:19] LABS: INR 1.1; Prothrombin Time 13.2 Seconds (9.4-12.1)
[2020-03-06 06:27] LABS: BUN/Creatinine Ratio 15 (6-26); Blood Urea Nitrogen 10 mg/dL (8-23); Calcium 9.2 mg/dL (8.6-10.3); Carbon Dioxide 31 mEq/L (23-29); Chloride 95 mEq/L (98-107); Glucose 118 mg/dL (70-105); Magnesium 1.9 mg/dL (1.6-2.6); Osmolality,Calculated 278 (280-300); Sodium 134 mEq/L (136-145); eGFR For African Americans > 60 (> 60); eGFR For Non-African Americans > 60 (> 60)
[2020-03-06] MEDS: Aspirin Enteric Coated 81 MG Tablet PO SCH (08:20)
[2020-03-06] MEDS: Sucralfate 1 GM TABLET PO SCH ×3 (08:20→16:55)
[2020-03-06] MEDS: Furosemide 40 MG/4 ML VIAL IVP SCH ×2 (08:21→22:26)
[2020-03-06] MEDS: lisinopriL 20 MG TABLET PO SCH (08:22)
[2020-03-06] MEDS: clonazePAM 0.5 MG TABLET PO PRN ×3 (08:25→22:01)
[2020-03-06] MEDS: Heparin 25,000UNIT/250ML 1/2NS 25,000 UNIT/250 ML IV.SOLN IVC SCH (11:55)
[2020-03-06] MEDS: Simethicone 80 MG TAB.CHEW PO PRN (17:35)
[2020-03-07 02:01] LABS: Basophils % 0.5 %; Eosinophils # 0.2 K/mcL (0.0-0.6); Eosinophils % 2.7 %; Hematocrit 34.7 % (35.3-44.9); Hemoglobin 11.1 g/dL (11.5-15.4); Immature Granulocytes % 0.3 % (0-4); Lymphocytes # 1.6 K/mcL (0.6-4.6); Lymphocytes % 25.2 %; Mean Corpuscular Hemoglobin 29.4 pg (28.0-33.3); Mean Platelet Volume 11.3 fL (9.4-12.4); Monocytes # 0.8 K/mcL (0.0-1.3); Monocytes % 12.8 %; Neutrophils # 3.7 K/mcL (1.6-8.9); Platelet Count 224 K/mcL (140-400); Red Blood Count 3.77 M/mcL (3.82-4.97); Red Cell Distribution Width 12.6 % (11.5-14.5); Segmented Neutrophils % 58.5 %; White Blood Count 6.4 K/mcL (4.3-11.1)
[2020-03-07 02:09] LABS: BUN/Creatinine Ratio 18 (6-26); Blood Urea Nitrogen 16 mg/dL (8-23); Calcium 9.4 mg/dL (8.6-10.3); Carbon Dioxide 29 mEq/L (23-29); Chloride 95 mEq/L (98-107); Glucose 109 mg/dL (70-105); Magnesium 1.8 mg/dL (1.6-2.6); Osmolality,Calculated 278 (280-300); Potassium 3.4 mEq/L (3.5-5.1); Sodium 133 mEq/L (136-145); eGFR For African Americans > 60 (> 60); eGFR For Non-African Americans > 60 (> 60)
[2020-03-07] MEDS: Sucralfate 1 GM TABLET PO SCH ×3 (07:37→15:36)
[2020-03-07] MEDS: lisinopriL 20 MG TABLET PO SCH (07:38)
[2020-03-07] MEDS: Aspirin Enteric Coated 81 MG Tablet PO SCH (07:38)
[2020-03-07] MEDS ORDERED: *HR* LORazepam 2 MG/ML VIAL IVP ONE (09:56)
[2020-03-07] MEDS: Furosemide 40 MG/4 ML VIAL IVP SCH ×2 (10:37→20:51)
[2020-03-07] MEDS ORDERED: 0.9 % Sodium Chloride 1,000 ML ONE ×2 (12:28→13:09)
[2020-03-07] MEDS ORDERED: ISOVUE-370 200 ML INFUS..BTL ONE (12:29)
[2020-03-07] MEDS ORDERED: *HR* Heparin 10,000 UNIT/10 ML VIAL ONE (12:29)
[2020-03-07] MEDS ORDERED: Heparin 1,000 UNITS/500 mL 500 ML ONE (12:29)
[2020-03-07] MEDS ORDERED: Nitroglycerin 1,000 MCG/10 ML VIAL IV ONE (12:29)
[2020-03-07] MEDS: Heparin 25,000UNIT/250ML 1/2NS 25,000 UNIT/250 ML IV.SOLN IVC SCH (12:52)
[2020-03-07] MEDS ORDERED: *HR* Midazolam HCl 2 MG/2 ML VIAL ONE (13:08)
[2020-03-07] MEDS ORDERED: *HR* FentaNYL (PF) 100 MCG/2 ML VIAL ONE (13:09)
[2020-03-07] MEDS ORDERED: 0.9 % Sodium Chloride 1,000 ML IVC SCH (14:45)
[2020-03-07] MEDS ORDERED: Adenosine 90 MG/30 ML MLS IV ONE (16:39)
[2020-03-08 03:36] LABS: Basophils % 0.3 %; Eosinophils # 0.2 K/mcL (0.0-0.6); Eosinophils % 3.6 %; Hematocrit 32.3 % (35.3-44.9); Hemoglobin 10.6 g/dL (11.5-15.4); Immature Granulocytes % 0.2 % (0-4); Lymphocytes # 1.5 K/mcL (0.6-4.6); Lymphocytes % 22.6 %; Mean Corpuscular HGB Conc 32.8 g/dL (31.6-35.5); Mean Corpuscular Volume 91.5 fL (83.0-100.0); Mean Platelet Volume 10.9 fL (9.4-12.4); Monocytes # 0.8 K/mcL (0.0-1.3); Monocytes % 11.7 %; Platelet Count 217 K/mcL (140-400); Red Blood Count 3.53 M/mcL (3.82-4.97); Red Cell Distribution Width 12.6 % (11.5-14.5); Segmented Neutrophils % 61.6 %; White Blood Count 6.4 K/mcL (4.3-11.1)
[2020-03-08 03:52] LABS: BUN/Creatinine Ratio 28 (6-26); Blood Urea Nitrogen 23 mg/dL (8-23); Calcium 9.4 mg/dL (8.6-10.3); Carbon Dioxide 27 mEq/L (23-29); Chloride 98 mEq/L (98-107); Glucose 106 mg/dL (70-105); Magnesium 1.8 mg/dL (1.6-2.6); Osmolality,Calculated 284 (280-300); Potassium 3.4 mEq/L (3.5-5.1); Sodium 135 mEq/L (136-145); eGFR For African Americans > 60 (> 60); eGFR For Non-African Americans > 60 (> 60)
[2020-03-08] MEDS: Sucralfate 1 GM TABLET PO SCH ×3 (07:47→15:19)
[2020-03-08] MEDS: Furosemide 40 MG/4 ML VIAL IVP SCH (07:47)
[2020-03-08] MEDS: Aspirin Enteric Coated 81 MG Tablet PO SCH (07:47)
[2020-03-08] MEDS: lisinopriL 20 MG TABLET PO SCH (07:48)
[2020-03-08] MEDS ORDERED: lisinopriL 20 MG TABLET PO SCH (09:00)
[2020-03-08] MEDS ORDERED: lisinopriL 20 MG TABLET PO ONE (10:02)
[2020-03-08] MEDS: clonazePAM 0.5 MG TABLET PO PRN ×3 (10:09→20:56)
[2020-03-08] MEDS: *HR* Heparin 5,000 UNIT/ML VIAL SQ SCH ×2 (10:10→17:32)
[2020-03-08] MEDS: Magnesium Oxide 400 MG TABLET PO SCH (10:10)
[2020-03-08] MEDS: Metoprolol XL (24 HR) Succ 25 MG TAB.ER.24H PO SCH (12:21)
[2020-03-08] MEDS: Simethicone 80 MG TAB.CHEW PO PRN ×2 (12:21→21:00)
[2020-03-09 04:03] LABS: Basophils % 0.2 %; Eosinophils # 0.3 K/mcL (0.0-0.6); Eosinophils % 5.3 %; Hematocrit 32.3 % (35.3-44.9); Hemoglobin 10.5 g/dL (11.5-15.4); Immature Granulocytes % 0.4 % (0-4); Lymphocytes # 1.2 K/mcL (0.6-4.6); Lymphocytes % 23.9 %; Mean Corpuscular HGB Conc 32.5 g/dL (31.6-35.5); Mean Corpuscular Hemoglobin 29.5 pg (28.0-33.3); Mean Corpuscular Volume 90.7 fL (83.0-100.0); Mean Platelet Volume 10.8 fL (9.4-12.4); Monocytes # 0.6 K/mcL (0.0-1.3); Monocytes % 11.2 %; Platelet Count 206 K/mcL (140-400); Red Blood Count 3.56 M/mcL (3.82-4.97); Red Cell Distribution Width 12.6 % (11.5-14.5); White Blood Count 5.1 K/mcL (4.3-11.1)
[2020-03-09 04:22] LABS: BUN/Creatinine Ratio 25 (6-26); Blood Urea Nitrogen 18 mg/dL (8-23); Calcium 9.5 mg/dL (8.6-10.3); Carbon Dioxide 31 mEq/L (23-29); Chloride 96 mEq/L (98-107); Glucose 99 mg/dL (70-105); Osmolality,Calculated 278 (280-300); Potassium 3.5 mEq/L (3.5-5.1); Sodium 133 mEq/L (136-145); eGFR For African Americans > 60 (> 60); eGFR For Non-African Americans > 60 (> 60)
[2020-03-09] MEDS: *HR* Heparin 5,000 UNIT/ML VIAL SQ SCH (05:27)
[2020-03-09] MEDS: Magnesium Oxide 400 MG TABLET PO SCH (07:51)
[2020-03-09] MEDS: Metoprolol XL (24 HR) Succ 25 MG TAB.ER.24H PO SCH (07:51)
[2020-03-09] MEDS: Aspirin Enteric Coated 81 MG Tablet PO SCH (07:52)
[2020-03-09] MEDS: Sucralfate 1 GM TABLET PO SCH ×2 (07:52→12:10)
[2020-03-09] MEDS ORDERED: Furosemide 40 MG TABLET PO SCH (09:00)
[2020-03-09] MEDS ORDERED: lisinopriL 20 MG TABLET PO SCH (09:00)
[2020-03-09 12:31] VITALS: BP 121/74
[2020-03-09] MEDS: clonazePAM 0.5 MG TABLET PO PRN (16:01)
== END 2020-03-09 16:40 | disposition home or self-care (01) | DRG 280 ==
LOC: 2ANU → SUATTDRO 21:38
PROVIDERS: ADMIT Internal Medicine; ATTEND Internal Medicine